=== PATIENT | male | born 1970 | race Hispanic/Latino ===

== ENCOUNTER 2020-09-08 21:08 | Inpatient (IN) | payer OTHER ==
[2020-09-08 22:38] LABS: BASOPHILS % (AUTO) 0.2 % (0.0-5.0); EOSINOPHILS % (AUTO) 1.7 % (0.0-8.0); LYMPHOCYTES % (AUTO) 40.1 % (21.0-51.0); MEAN CORPUSCULAR HEMOGLOBIN 35.6 pg (27.0-33.0); MEAN CORPUSCULAR VOLUME 101.8 fL (79-99); MONOCYTES % (AUTO) 8.7 % (3.0-13.0); NEUTROPHILS % (AUTO) 49.1 % (40.0-77.0); PLATELET COUNT (AUTO) 69 K/uL (130-400); RED BLOOD CELL COUNT(AUTO) 4.52 MIL/uL (4.50-6.20)
[2020-09-08] MEDS ORDERED: IBUPROFEN 600 MG TABLET ONE (22:41)
[2020-09-08] MEDS ORDERED: DEXAMETHASONE SOD PHOSPHATE 10MG/ML 1ML VIAL ONE (22:41)
[2020-09-08] MEDS ORDERED: ACETAMINOPHEN 500 MG TABLET ONE (22:41)
[2020-09-08] MEDS ORDERED: CEFTRIAXONE 1G VIAL ONE (22:41)
[2020-09-08 22:54] LABS: CREATININE 1.5 mg/dL (0.5-1.5)
[2020-09-08 22:59] LABS: ALBUMIN 3.3 g/dL (3.5-5.0); BILIRUBIN,TOTAL 0.3 mg/dL (0.2-1.0); TOTAL PROTEIN, SERUM 8.2 g/dL (6.0-8.3)
[2020-09-08 23:00] LABS: INR 1.04 (0.85-1.15); PROTHROMBIN TIME 11.1 SEC (9.6-11.6)
[2020-09-08 23:01] LABS: B-TYPE NATRIURETIC PEPTIDE 9 pg/mL (0-100)
[2020-09-08 23:19] LABS: ABG BASE EXCESS -0.8 mmol/L (-2.0-3.0); ABG HCO3 24.1 mmol/L (21.0-28.0); ABG OXYGEN SATURATION 56.1 % (95.0-99.0); ABG PCO2 41 mmHg (35-48)
[2020-09-08] MEDS ORDERED: AZITHROMYCIN 500MG+NS 250ML 250 ML IV ONE (23:35)
[2020-09-09] MEDS ORDERED: ALBUTEROL INHALER 90MCG/INH IH ONE (00:08)
[2020-09-09] MEDS ORDERED: ONDANSETRON 4MG INJ IV PRN (02:30)
[2020-09-09] MEDS ORDERED: ERGOCALCIFEROL (VITAMIN D2) 50,000 UNIT CAPSULE PO ONE (02:30)
[2020-09-09] MEDS ORDERED: CEFTRIAXONE 1G VIAL IVP SCH (02:30)
[2020-09-09] MEDS ORDERED: ACETAMINOPHEN 325 MG TAB PO PRN ×2 (02:30)
[2020-09-09] MEDS ORDERED: AZITHROMYCIN 500MG+NS 250ML 250 ML IV SCH (02:30)
[2020-09-09] MEDS ORDERED: MORPHINE 2 MG SYG IV PRN (02:30)
[2020-09-09] MEDS ORDERED: ASCORBIC ACID 500 MG TAB ONE (07:59)
[2020-09-09] MEDS ORDERED: DOXYCYCLINE HYCLATE 100 MG TABLET PO ONE ×2 (07:59→21:06)
[2020-09-09] MEDS ORDERED: ACETYLCYSTEINE 600 MG CAPSULE ONE ×2 (08:00→21:06)
[2020-09-09] MEDS ORDERED: DEXAMETHASONE SOD PHOSPHATE 4 MG/ML 1ML VIAL ONE (08:00)
[2020-09-09] MEDS ORDERED: ENOXAPARIN SODIUM 30 MG/0.3 ML SQ ONE (08:00)
[2020-09-09] MEDS ORDERED: ZINC SULFATE 220 CAPSULE ONE (08:00)
[2020-09-09] MEDS ORDERED: FAMOTIDINE 20MG VIAL IV ONE (08:01)
[2020-09-09] MEDS ORDERED: 0.9% NACL 250ML 250 ML IV ONE (08:03)
[2020-09-09] MEDS ORDERED: DOXYCYCLINE HYCLATE 100 MG TABLET PO SCH (09:00)
[2020-09-09] MEDS ORDERED: ENOXAPARIN SODIUM 30 MG/0.3 ML SQ SCH (09:00)
[2020-09-09] MEDS ORDERED: ZINC SULFATE 220 CAPSULE PO SCH (09:00)
[2020-09-09] MEDS ORDERED: DEXAMETHASONE SOD PHOSPHATE 4 MG/ML 1ML VIAL IVP SCH (09:00)
[2020-09-09] MEDS ORDERED: FAMOTIDINE 20MG VIAL IV SCH (09:00)
[2020-09-09] MEDS ORDERED: ASCORBIC ACID 500 MG TAB PO SCH (09:00)
[2020-09-09] MEDS ORDERED: ACETYLCYSTEINE 600 MG CAPSULE PO SCH (09:00)
[2020-09-09] MEDS ORDERED: CEFTRIAXONE 1G VIAL ONE ×2 (14:30→22:23)
[2020-09-09] MEDS ORDERED: ENOXAPARIN SODIUM 40 MG/0.4 ML SYRINGE SQ SCH (21:00)
[2020-09-09] MEDS ORDERED: ENOXAPARIN SODIUM 40 MG/0.4 ML SYRINGE SQ ONE (21:07)
[2020-09-09] MEDS ORDERED: AZITHROMYCIN 500MG+NS 250ML 250 ML IV ONE (22:22)
== END 2020-09-10 00:42 | disposition short-term general hospital (02) | DRG 177 ==
LOC: EDH 21:08 → EDHIP 09-09 02:28
PROVIDERS: ADMIT Hospitalist; ATTEND Hospitalist
PROC: 5A0935A Assistance with Respiratory Ventilation, Less than 24 Consecutive Hours, High Flow/Velocity Cannula (ICD-10-PCS; 2020-09-08)
PROC: XW13325 Transfusion of Convalescent Plasma (Nonautologous) into Peripheral Vein, Percutaneous Approach, New Technology Group 5 (ICD-10-PCS; principal; 2020-09-09)
DX: U07.1 COVID-19 (principal); J96.01 Acute respiratory failure with hypoxia; J12.82 Pneumonia due to coronavirus disease 2019; N17.9 Acute kidney failure, unspecified; E86.0 Dehydration; E66.01 Morbid (severe) obesity due to excess calories; G47.33 Obstructive sleep apnea (adult) (pediatric); B95.0 Streptococcus, group A, as the cause of diseases classified elsewhere
CPT/HCPCS: 36415; 36600; 71045; 80053; 82550; 82803; 83605; 83880; 84145; 84484; 85025; 85610; 85730; 86850; 86900; 86901; 86927; 87040; 87426; 87804; 87880; 93005; 99291; G0378; J0456; J0696; J1100; J1650; J3490; J7050